=== PATIENT | female | born 1960 | race African-American/Black ===

== ENCOUNTER 2023-02-10 01:15 | Inpatient (IN) | payer MEDICARE, OTHER ==
[2023-02-10] MEDS ORDERED: SODIUM CHLORIDE 0.9% 1,000 ML IV STA (01:34)
[2023-02-10 02:19] LABS: Basophils % (A) 0 %; Eosinophils # (A) 0.2 k/uL (0-0.7); Eosinophils % (A) 3 %; HCT 43.7 % (34.0-46.0); HGB 14.6 gm/dL (11.4-16.0); Lymphocytes # (A) 0.2 k/uL (1.0-4.8); Lymphocytes % (A) 4 %; MCH 32.1 pg (25.0-35.0); MCHC 33.4 g/dL (31.0-37.0); MCV 96.1 fL (80.0-100.0); Mean Platelet Volume 7.7; Monocytes # (A) 0.2 k/uL (0-1.0); Monocytes % (A) 4 %; Neutrophils # (A) 5.9 k/uL (1.3-7.7); Neutrophils % (A) 89 %; Platelet Count 203 k/uL (150-450); RBC 4.55 m/uL (3.80-5.40); RDW 13.2 % (11.5-15.5); WBC 6.6 k/uL (3.8-10.6)
[2023-02-10] MEDS ORDERED: ONDANSETRON 4 MG/2 ML VIAL IVP STA (02:29)
[2023-02-10] MEDS: DICYCLOMINE 10 MG/ML 2 ML AMP IM STA ×2 (02:48→02:53)
[2023-02-10 03:01] LABS: Appearance,Urine Clear (Clear); Bilirubin,Urine Negative (Negative); Blood,Urine Negative (Negative); Color,Urine Yellow; Glucose,Urine (UA) Negative (Negative); Ketones,Urine Negative (Negative); Leukocyte Esterase,Urine Negative (Negative); Nitrite,Urine Negative (Negative); PH, Urine 7.5 (5.0-8.0); Protein,Urine Negative (Negative); Specific Gravity,Urine 1.012 (1.001-1.035); Urobilinogen,Urine <2.0 mg/dL (<2.0)
--- NOTE | 2023-02-10 03:12 | ED ---
Nausea/Vomiting/Diarrhea HPI - General Chief complaint: Nausea/Vomiting/Diarrhea Stated complaint: Vomiting Time Seen by Provider: 02/10/23 01:34 Source: patient, RN notes reviewed, old records reviewed Mode of arrival: ambulatory Limitations: no limitations - History of Present Illness Initial comments: This is a 62-year-old female to the ER for evaluation of possible food poisoning nausea abdominal pain weakness not feeling well. Patient presents to the emergency department for evaluation concern for food poisoning and nausea. Positive she may be having gas pain and abdominal pain. Patient does have history of hysterectomy no other abdominal surgeries. No travel history otherwise sick contacts. MD complaint: nausea, vomiting, diarrhea, abdominal pain -: hour(s) Description of Vomiting: food contents Associated Abdominal Pain: Yes Location: diffuse Radiation: none Severity: mild Severity scale (1-10): 2 Quality: sharp Consistency: intermittent Improves with: none Worsens with: none Context: possible food poisoning Associated Symptoms: loss of appetite, nausea/vomiting, weakness - Related Data Home Medications Medication Instructions Recorded Confirmed Levothyroxine Sodium [Synthroid] 75 mcg PO DAILY 02/10/23 02/10/23 Allergies Allergy/AdvReac Type Severity Reaction Status Date / Time tetracycline Allergy Rash/Hives Verified 02/10/23 08:56 codeine AdvReac Unknown Verified 02/10/23 22:57 Review of Systems ROS Statement: Those systems with pertinent positive or pertinent negative responses have been documented in the HPI. ROS Other: All systems not noted in ROS Statement are negative. Past Medical History Past Medical History: Atrial Fibrillation, Thyroid Disorder Past Surgical History: No Surgical Hx Reported Past Psychological History: No Psychological Hx Reported Smoking Status: Never smoker Past Alcohol Use History: None Reported Past Drug Use History: None Reported General Exam Limitations: no limitations General appearance: alert, in no apparent distress, lethargic, cachectic Head exam: Present: atraumatic, normocephalic, normal inspection Eye exam: Present: normal appearance, PERRL, EOMI. Absent: scleral icterus, conjunctival injection, periorbital swelling ENT exam: Present: normal exam, mucous membranes moist Neck exam: Present: normal inspection. Absent: tenderness, meningismus, lymphadenopathy Respiratory exam: Present: normal lung sounds bilaterally. Absent: respiratory distress, wheezes, rales, rhonchi, stridor Cardiovascular Exam: Present: regular rate, normal rhythm, normal heart sounds. Absent: systolic murmur, diastolic murmur, rubs, gallop, clicks GI/Abdominal exam: Present: soft, normal bowel sounds. Absent: distended, tenderness, guarding, rebound, rigid Extremities exam: Present: normal inspection, full ROM, normal capillary refill. Absent: tenderness, pedal edema, joint swelling, calf tenderness Back exam: Present: normal inspection Neurological exam: Present: alert, oriented X3, CN II-XII intact Psychiatric exam: Present: normal affect, normal mood Skin exam: Present: warm, dry, intact, normal color. Absent: rash Course Vital Signs 02/10/23 02/10/23 02/10/23 01:24 02:01 05:39 Temperature 100.3 F H 99.4 F 99.0 F Pulse Rate 102 H Respiratory 16 Rate Blood Pressure 122/76 Blood Pressure [Left Arm Sitting] O2 Sat by Pulse 98 Oximetry 02/10/23 02/10/23 02/10/23 11:00 11:21 15:48 Temperature 100.1 F H 100.1 F H 99.4 F Pulse Rate 72 Respiratory 18 18 Rate Blood Pressure 130/75 Blood Pressure 132/78 [Left Arm Sitting] O2 Sat by Pulse 100 99 Oximetry 02/10/23 20:24 Temperature 102 F H Pulse Rate 78 Respiratory 16 Rate Blood Pressure 109/66 Blood Pressure [Left Arm Sitting] O2 Sat by Pulse 98 Oximetry - Reevaluation(s) Reevaluation #1: 02/10/23 03:11 Medical record is reviewed Reevaluation #2: 02/10/23 03:11 Patient symptoms are improved Reevaluation #3: Patient informed of results and questions answered Reevaluation #4: 02/10/23 03:11 Was pt. sent in by a medical professional or institution? @ -no Did you speak to anyone other than the patient for history? @ -no Did you review nursing and triage notes? @ -agree Were old charts reviewed? @ -yes Differential Diagnosis? @ -prior EKG interpreted by me (3pts min.)? @ -yes X-rays interpreted by me (1pt min.)? @ -yes CT interpreted by me (1pt min.)? @ -yes U/S interpreted by me (1pt. min.)? @ -no What testing was considered but not performed? (CT, X-rays, U/S, labs)? Why? @ -no What meds were considered but not given? Why? @ -no Did you discuss the management of the patient with other professionals? @ -no Did you reconcile home meds? @ -no Was smoking cessation discussed for >3mins.? @ -no Was critical care preformed (if so, how long)? @ -no Were there social determinants of health that impacted care today? How? (Homelessness, low income, unemployed, alcoholism, drug addiction, transportation, low edu. Level, literacy, decrease access to med. care, snf, rehab)? @ -no Was there de-escalation of care discussed even if they declined? (Discuss DNR or withdrawal of care, Hospice)? @ -no What co-morbidities impacted this encounter? (DM, HTN, Smoking, COPD, CAD, Ca ncer, CVA, Hep., AIDS, mental health diagnosis, sleep apnea, morbid obesity)? @ -none Was patient admitted / discharged? @ -83 male to the emergency department for altered mental status likely fever with urinary tract infection, multifocal pneumonia, and subacute CVA. Patient will be admitted for breathing treatments supportive care and neurology evaluation Gastric outlet obstruction Undiagnosed new problem with uncertain prognosis? @ -no Drug Therapy requiring intensive monitoring for toxicity (Heparin, Nitro, Insulin, Cardizem)? @ -no Were any procedures done? @ -no Diagnosis/symptom? @ -Gastric outlet obstruction Acute, or Chronic, or Acute on Chronic? @ -acute Uncomplicated (without systemic symptoms) or Complicated (systemic symptoms)? @ -complicated Side effects of treatment? @ -no Exacerbation, Progression, or Severe Exacerbation] @ -no Poses a threat to life or bodily function? @ -yes2 Reevaluation #5: 02/10/23 03:11 Differential Abdominal Pain Women: Appendicitis, Cholecystitis, diverticulosis, ischemic bowel, pancreatitis, hepatitis, UTI, gastroenteritis, AAA, incarcerated hernia, bowel obstruction, constipation, inflammatory bowel, hepatitis, peptic ulcer disease, splenic infarction, perforated viscus, vulvitis, ovarian torsion, PID, kidney stone, placenta abruption, this is not meant to be an all-inclusive list Differential Fever: Pneumonia, viral URI, endocarditis, myocarditis, pericarditis, otitis, sinu sitis, peritonsillar Abscess, retropharyngeal Abscess, epiglottitis, peritonitis, appendicitis, Destiney cystitis, diverticulitis, hepatitis, colitis, UTI, PID, TOA, pyelonephritis, prostatitis, epididymitis, meningitis, encephalitis, pulmonary embolism, CVA, thyroid storm, pancreatitis, adrenal crisis, cavernous sinus thrombosis, this is not meant to be an all-inclusive list. - Consultations Consultation #1: spoke with admitting physicians who agree to admit this patient Medical Decision Making - Medical Decision Making 62 female to the emergency department for evaluation of fever nausea vomiting weakness. Patient feeling persistently sick here in the emergency department. Patient does have gastric outlet obstruction will admit for further evaluation by surgery - Lab Data Result diagrams: 02/12/23 06:08 02/12/23 06:08 Lab Results 02/10/23 02/10/23 02/10/23 Range/Units 01:44 01:44 01:44 WBC 6.6 (3.8-10.6) k/uL RBC 4.55 (3.80-5.40) m/uL Hgb 14.6 (11.4-16.0) gm/dL Hct 43.7 (34.0-46.0) % MCV 96.1 (80.0-100.0) fL MCH 32.1 (25.0-35.0) pg MCHC 33.4 (31.0-37.0) g/dL RDW 13.2 (11.5-15.5) % Plt Count 203 (150-450) k/uL MPV 7.7 Neutrophils % 89 % Lymphocytes % 4 % Monocytes % 4 % Eosinophils % 3 % Basophils % 0 % Neutrophils # 5.9 (1.3-7.7) k/uL Lymphocytes # 0.2 L (1.0-4.8) k/uL Monocytes # 0.2 (0-1.0) k/uL Eosinophils # 0.2 (0-0.7) k/uL Basophils # 0.0 (0-0.2) k/uL Sodium (137-145) mmol/L Potassium (3.5-5.1) mmol/L Chloride (98-107) mmol/L Carbon Dioxide (22-30) mmol/L Anion Gap mmol/L BUN (7-17) mg/dL Creatinine (0.52-1.04) mg/dL Est GFR (CKD-EPI)AfAm (>60 ml/min/1.73 sqM) Est GFR (CKD-EPI)NonAf (>60 ml/min/1.73 sqM) Glucose (74-99) mg/dL Plasma Lactic Acid Gustavo 1.1 (0.7-2.0) mmol/L Calcium (8.4-10.2) mg/dL Phosphorus (2.5-4.5) mg/dL Magnesium (1.6-2.3) mg/dL Total Bilirubin (0.2-1.3) mg/dL AST (14-36) U/L ALT (4-34) U/L Alkaline Phosphatase (38-126) U/L Total Protein (6.3-8.2) g/dL Albumin (3.5-5.0) g/dL Amylase (30-110) U/L Lipase (23-300) U/L Urine Color Yellow Urine Appearance Clear (Clear) Urine pH 7.5 (5.0-8.0) Ur Specific Fowler 1.012 (1.001-1.035) Urine Protein Negative (Negative) Urine Glucose (UA) Negative (Negative) Urine Ketones Negative (Negative) Urine Blood Negative (Negative) Urine Nitrite Negative (Negative) Urine Bilirubin Negative (Negative) Urine Urobilinogen <2.0 (<2.0) mg/dL Ur Leukocyte Esterase Negative (Negative) 02/10/23 Range/Units 03:10 WBC (3.8-10.6) k/uL RBC (3.80-5.40) m/uL Hgb (11.4-16.0) gm/dL Hct (34.0-46.0) % MCV (80.0-100.0) fL MCH (25.0-35.0) pg MCHC (31.0-37.0) g/dL RDW (11.5-15.5) % Plt Count (150-450) k/uL MPV Neutrophils % % Lymphocytes % % Monocytes % % Eosinophils % % Basophils % % Neutrophils # (1.3-7.7) k/uL Lymphocytes # (1.0-4.8) k/uL Monocytes # (0-1.0) k/uL Eosinophils # (0-0.7) k/uL Basophils # (0-0.2) k/uL Sodium 139 (137-145) mmol/L Potassium 3.6 (3.5-5.1) mmol/L Chloride 102 (98-107) mmol/L Carbon Dioxide 30 (22-30) mmol/L Anion Gap 7 mmol/L BUN 12 (7-17) mg/dL Creatinine 0.64 (0.52-1.04) mg/dL Est GFR (CKD-EPI)AfAm >90 (>60 ml/min/1.73 sqM) Est GFR (CKD-EPI)NonAf >90 (>60 ml/min/1.73 sqM) Glucose 137 H (74-99) mg/dL Plasma Lactic Acid Gustavo (0.7-2.0) mmol/L Calcium 9.0 (8.4-10.2) mg/dL Phosphorus 3.3 (2.5-4.5) mg/dL Magnesium 1.8 (1.6-2.3) mg/dL Total Bilirubin 0.8 (0.2-1.3) mg/dL AST 33 (14-36) U/L ALT 28 (4-34) U/L Alkaline Phosphatase 47 (38-126) U/L Total Protein 7.0 (6.3-8.2) g/dL Albumin 4.2 (3.5-5.0) g/dL Amylase 126 H (30-110) U/L Lipase 261 (23-300) U/L Urine Color Urine Appearance (Clear) Urine pH (5.0-8.0) Ur Specific Fowler (1.001-1.035) Urine Protein (Negative) Urine Glucose (UA) (Negative) Urine Ketones (Negative) Urine Blood (Negative) Urine Nitrite (Negative) Urine Bilirubin (Negative) Urine Urobilinogen (<2.0) mg/dL Ur Leukocyte Esterase (Negative) - Radiology Data Radiology results: report reviewed (Chest x-ray CT head and pelvis shows gastric outlet obstruction), image reviewed Disposition Clinical Impression: Dehydration, Gastric outlet obstruction, Fever, Weakness Disposition: ADMITTED IP TO THIS [facility] Condition: Stable Is patient prescribed a controlled substance at d/c from ED?: No Time of Disposition: 06:15
[2023-02-10 03:27] LABS: ALT 28 U/L (4-34); AST 33 U/L (14-36); African American GFR (CKD) >90 (>60 ml/min/1.73 sqM); Albumin 4.2 g/dL (3.5-5.0); Alkaline Phosphatase 47 U/L (38-126); Amylase 126 U/L (30-110); Anion Gap 7 mmol/L; Blood Urea Nitrogen 12 mg/dL (7-17); Carbon Dioxide 30 mmol/L (22-30); Chloride 102 mmol/L (98-107); Glucose 137 mg/dL (74-99); Lipase 261 U/L (23-300); Magnesium 1.8 mg/dL (1.6-2.3); Non-African American GFR(CKD) >90 (>60 ml/min/1.73 sqM); Phosphorus 3.3 mg/dL (2.5-4.5); Potassium 3.6 mmol/L (3.5-5.1); Sodium 139 mmol/L (137-145); Total Bilirubin 0.8 mg/dL (0.2-1.3)
[2023-02-10] MEDS ORDERED: ONDANSETRON 4 MG/2 ML VIAL IVP PRN (06:20)
[2023-02-10] MEDS ORDERED: MORPHINE SULFATE 4 MG/ML SYRINGE IV PRN (06:20)
[2023-02-10] MEDS ORDERED: NALOXONE 0.4 MG/ML 1 ML VIAL IV PRN (06:20)
[2023-02-10] MEDS ORDERED: AMPICILLIN-SULBACTAM 3 GM in SODIUM CHLORIDE 0.9% 100 ML IVPB STA (06:24)
[2023-02-10] MEDS: SODIUM CHLORIDE 0.9% 1,000 ML IV SCH ×2 (06:52→21:14)
--- NOTE | 2023-02-10 08:35 | CT ---
EXAMINATION TYPE: CT abdomen pelvis w con DATE OF EXAM: 02/10/2023 HISTORY: Nausea vomiting and abdominal pain after recent meal ingestion CT DLP: 503mGycm Automated Exposure Control for Dose Reduction was Utilized. CONTRAST: CT scan of the abdomen and pelvis is performed without oral but with IV Contrast, patient injected wi th 100 mL of Isovue 300. COMPARISON: None FINDINGS: LUNG BASES: No significant abnormality is appreciated. LIVER/GB: There are a few tiny subcentimeter hypodense lesions throughout the liver that are too smal l to definitively characterize but presumably benign. Contracted gallbladder noted coronal image 15. No biliary dilatation. PANCREAS: Focal 6 mm round low dense focus in the proximal pancreatic body axial image [address] cystic lesion or IPMN along the course of the pancreatic duct. Nonemergent follow-up advised. SPLEEN: Nonspecific 1.4 cm hypodense lesion anterior spleen axial image 18 is favored benign thin-wal led cyst. ADRENALS: No significant abnormality is seen. KIDNEYS: Symmetric cortical medullary uptake and excretion without hydronephrosis seen bilaterally. T here is 1.1 cm simple appearing thin-walled cyst in the right kidney delayed axial image 31. BOWEL: There is fluid filled moderate to severe distended stomach. There is no abnormal dilatation of the duodenal sweep. There is no dilated small and large bowel loops. Fluid-filled cecum is present. Mild/moderate wall thickening in the sigmoid rectal colon. Slightly suboptimal evaluation of bowel as patient has little intra-abdominal fat. UTERUS/ADNEXA: Uterus surgically absent or markedly atrophic. Multiple small scattered bilateral pelv ic phleboliths are seen.. LYMPH NODES: No greater than 1cm abdominal or pelvic lymph nodes are appreciated. OSSEOUS STRUCTURES: No significant abnormality is seen. OTHER: Focal swirling of vessels noted axial image 29 but the SMA/SMV relationship is preserved. IMPRESSION: 1. Moderate to severe fluid-filled dilated stomach without bowel dilatation consistent with gastric o utlet obstruction. Internal hernia is not entirely excluded. Consider nasogastric tube decompression. 2. Mild to moderate wall thickening of the sigmoid rectal colon without surrounding fat stranding. Ab normal fluid in the proximal colon. Findings could reflect product of uncomplicated colitis. 3. A 6 mm hypodense focus in the proximal pancreatic body could reflect pancreatic cystic lesion or I PMN and nonurgent follow-up including MRI/MRCP advised to further evaluate.
--- NOTE | 2023-02-10 12:16 | XR ---
EXAMINATION TYPE: XR chest 1V portable DATE OF EXAM: 02/10/2023 CLINICAL HISTORY: NG tube placement. TECHNIQUE: Single AP portable frontal upright view of the chest is obtained. COMPARISON: None FINDINGS: Nasogastric tube projecting below diaphragm is seen. There is no suspicious focal air space opacity, pleural effusion, or pneumothorax seen. The cardiac silhouette size is within normal limit s. The osseous structures are intact. IMPRESSION: As above.
[2023-02-10] MEDS: PANTOPRAZOLE 40 MG/10 ML VIAL IV SCH (12:35)
--- NOTE | 2023-02-10 13:45 | P.HPIM ---
History of Present Illness Patient is a 8-year-old female came in with complaints of nausea vomiting and some diarrhea patient had a normal bowel movement. Patient had a CT of the abdomen which showed bowel obstruction with some colitis. Patient also has fe mary grace earlier today. Patient has a fluid-filled distended stomach. REVIEW OF SYSTEMS: CONSTITUTIONAL: No fever, no malaise, no fatigue. HEENT: No recent visual problems or hearing problems. Denied any sore throat. CARDIOVASCULAR: No chest pain, orthopnea, PND, no palpitations, no syncope. PULMONARY: No shortness of breath, no cough, no hemoptysis. GASTROINTESTINAL: As mentioned in HPI NEUROLOGICAL: No headaches, no weakness, no numbness. HEMATOLOGICAL: Denies any bleeding or petechiae. GENITOURINARY: Denies any burning micturition, frequency, or urgency. MUSCULOSKELETAL/RHEUMATOLOGICAL: Denies any joint pain, swelling, or any muscle pain. ENDOCRINE: Denies any polyuria or polydipsia. The rest of the 14-point review of systems is negative. PHYSICAL EXAMINATION: GENERAL: The patient is alert and oriented x3, not in any acute distress. Well developed, well nourished. HEENT: Pupils are round and equally reacting to light. EOMI. No scleral icterus. No conjunctival pallor. Normocephalic, atraumatic. No pharyngeal erythema. No thyromegaly. CARDIOVASCULAR: S1 and S2 present. No murmurs, rubs, or gallops. PULMONARY: Chest is clear to auscultation, no wheezing or crackles. ABDOMEN: Soft, nontender, nondistended, normoactive bowel sounds. No palpable organomegaly. MUSCULOSKELETAL: No joint swelling or deformity. EXTREMITIES: No cyanosis, clubbing, or pedal edema. NEUROLOGICAL: Gross neurological examination did not reveal any focal deficits. SKIN: No rashes. Assessment and plan I for nausea vomiting abdominal pain: Possible gastric outlet and small bowel obstruction patient may have viral gastroenteritis although I cannot completely rule out bacterial sigmoid colitis because of which I'll start patient on antibiotics, patient will be continued on IV fluids patient is presently on Unasyn. -Fever due to possible colitis or viral gastroenteritis -Hypothyroidism patient can be resumed on levothyroxine whenever she can tolerate by mouth diet, patient is presently nothing by mouth DVT prophylaxis: Lovenox subcutaneous Past Medical History Past Medical History: Atrial Fibrillation, Thyroid Disorder Past Surgical History: No Surgical Hx Reported Past Psychological History: No Psychological Hx Reported Smoking Status: Never smoker Past Alcohol Use History: None Reported Past Drug Use History: None Reported Medications and Allergies Home Medications Medication Instructions Recorded Confirmed Type Levothyroxine Sodium [Synthroid] 75 mcg PO DAILY 02/10/23 02/10/23 History Allergies Allergy/AdvReac Type Severity Reaction Status Date / Time tetracycline Allergy Rash/Hives Verified 02/10/23 08:56 Physical Exam Vitals: Vital Signs Temp Pulse Resp BP BP Pulse Ox 02/10/23 11:21 100.1 F H 18 132/78 100 02/10/23 11:00 100.1 F H 02/10/23 05:39 99.0 F 02/10/23 02:01 99.4 F 02/10/23 01:24 100.3 F H 102 H 16 122/76 98 Intake and Output 02/09/23 02/10/23 02/10/23 22:59 06:59 14:59 Other: Weight 50.439 kg Results CBC & Chem 7: 02/10/23 01:44 02/10/23 03:10 Labs: Abnormal Lab Results - Last 24 Hours (Table) 02/10/23 02/10/23 Range/Units 01:44 03:10 Lymphocytes # 0.2 L (1.0-4.8) k/uL Glucose 137 H (74-99) mg/dL Amylase 126 H (30-110) U/L
--- NOTE | 2023-02-10 15:20 | P.GSCN ---
History of Present Illness Consult date: 02/10/23 History of present illness: CHIEF COMPLAINT: Abdominal pain with nausea and vomiting HISTORY OF PRESENT ILLNESS: This is a 62-year-old female who initially presented to the hospital with complaints of abdominal pain and nausea and vomiting. She ate [employer] yesterday morning for breakfast and then had some bananas later in the day. She reports that her abdomen became very bloated and she vomited once. However, she remained distended. She presented to the ER for further evaluation. Initially she said that she had food poisoning from the [employer]. She did have 4 normal bowel movements yesterday. Since then she has had no bowel movements or flatus. She's never had EGD or colonoscopy. Past surgical history does include a hysterectomy. She does have a known history of atrial fib relation not on any blood thinners. She had mild temps of 100.3 and his been mildly tachycardic. Computed tomography scan of the abdomen and pelvis completed showing concerns for a gastric outlet obstruction. There was moderate to severe fluid-filled dilated stomach noted. NG tube placed in ER. Patient is from [place] and is here visiting family. PAST MEDICAL HISTORY: See below PAST SURGICAL HISTORY: See below MEDICATIONS: See below ALLERGIES: See below SOCIAL HISTORY: No illicit drug use. REVIEW OF SYSTEMS: CONSTITUTIONAL: Denies fever or chills. HEENT: Denies blurred vision, vision changes, or eye pain. Denies hemoptysis CARDIOVASCULAR: Denies chest pain or pressure. RESPIRATORY: No shortness of breath. GASTROINTESTINAL: See HPI for pertinent findings HEMATOLOGIC: Denies bleeding disorders. GENITOURINARY: Denies any blood in urine or increased urinary frequency. SKIN: Denies pruitis. Denies rash. PHYSICAL EXAM: VITAL SIGNS: Reviewed GENERAL: Well-developed in no acute distress. HEENT: No sclera icterus. Extraocular movements grossly intact. Moist buccal mucosa. Head is atraumatic, normocephalic. No nasal drainage. ABDOMEN: Soft. Mildly distended Nontender NEUROLOGIC: Alert and oriented. Cranial nerves II through XII grossly intact. LABORATORY DATA: WBC 6.6 Hgb 14.6 platelets 203 Sodium is 139 potassium 3.6 creatinine 0.64 Lactic acid 1.1 LFTs normal lipase normal Urinalysis negative IMAGING: Computed tomography scan abdomen and pelvis moderate to severe fluid-filled dilated stomach without bowel dilatation consistent with gastric outlet obstruction. Internal hernia is not entirely excluded. Consider NG tube decompression. Mild to moderate wall thickening of the sigmoid rectal: Without surrounding fat stranding. Abnormal fluid in the proximal colon. Findings could reflect product of uncomplicated colitis. 6 mm hypodense focus in the proximal pancreatic body could reflect pancreatic cystic lesion. ASSESSMENT: 1. Abdominal pain with nausea and vomiting 2. Moderate severe fluid-filled dilated stomach without bowel dilatation consistent with gastric outlet obstruction noted on computed tomography scan 3. Mild to moderate wall thickening of the sigmoid rectal colon With abnormal fluid in the proximal colon. Possible uncomplicated colitis. 4. 6 mm hypodense focus in the proximal pancreatic body that could reflect pancreatic cystic lesion PLAN: -NG tube placed for decompression -Keep patient nothing by mouth -Upper GI has been ordered -Further recommendations forthcoming per surgeon regarding EGD -Continue IV fluids -Continue antibiotics for possible colitis Thank you for this consultation Physician Swage Toolsetter note has been reviewed by physician. Signing provider agrees with the documented findings, assessment, and plan of care. I have personally seen and examined the patient, reviewed the [facility]IL[facility] /PAs history, exam and MDM and agree with the assessment and plan as written. Based on total visit time, I have performed more than 50% of the visit. As above: Patient presents with distended stomach. Had a nasogastric tube placed with some improvement. Apparently this fell out and she does not want to go back in. Upper GI ordered for tomorrow morning. Await those findings. Keep nothing by mouth. Continue antiacid therapy. Past Medical History Past Medical History: Atrial Fibrillation, Thyroid Disorder Past Surgical History: No Surgical Hx Reported Past Psychological History: No Psychological Hx Reported Smoking Status: Never smoker Past Alcohol Use History: None Reported Past Drug Use History: None Reported Medications and Allergies Home Medications Medication Instructions Recorded Confirmed Type Levothyroxine Sodium [Synthroid] 75 mcg PO DAILY 02/10/23 02/10/23 History Allergies Allergy/AdvReac Type Severity Reaction Status Date / Time tetracycline Allergy Rash/Hives Verified 02/10/23 08:56 Surgical - Exam Vital Signs Temp Pulse Resp BP Pulse Ox 100.3 F H 102 H 16 122/76 98 02/10/23 01:24 02/10/23 01:24 02/10/23 01:24 02/10/23 01:24 02/10/23 01:24 Results - Labs 02/10/23 01:44 02/10/23 03:10 Abnormal Lab Results - Last 24 Hours (Table) 02/10/23 02/10/23 Range/Units 01:44 03:10 Lymphocytes # 0.2 L (1.0-4.8) k/uL Glucose 137 H (74-99) mg/dL Amylase 126 H (30-110) U/L Diabetes panel 02/10/23 Range/Units 03:10 Sodium 139 (137-145) mmol/L Potassium 3.6 (3.5-5.1) mmol/L Chloride 102 (98-107) mmol/L Carbon Dioxide 30 (22-30) mmol/L BUN 12 (7-17) mg/dL Creatinine 0.64 (0.52-1.04) mg/dL Glucose 137 H (74-99) mg/dL Calcium 9.0 (8.4-10.2) mg/dL AST 33 (14-36) U/L ALT 28 (4-34) U/L Alkaline Phosphatase 47 (38-126) U/L Total Protein 7.0 (6.3-8.2) g/dL Albumin 4.2 (3.5-5.0) g/dL Calcium panel 02/10/23 Range/Units 03:10 Calcium 9.0 (8.4-10.2) mg/dL Phosphorus 3.3 (2.5-4.5) mg/dL Albumin 4.2 (3.5-5.0) g/dL Pituitary panel 02/10/23 Range/Units 03:10 Sodium 139 (137-145) mmol/L Potassium 3.6 (3.5-5.1) mmol/L Chloride 102 (98-107) mmol/L Carbon Dioxide 30 (22-30) mmol/L BUN 12 (7-17) mg/dL Creatinine 0.64 (0.52-1.04) mg/dL Glucose 137 H (74-99) mg/dL Calcium 9.0 (8.4-10.2) mg/dL Adrenal panel 02/10/23 Range/Units 03:10 Sodium 139 (137-145) mmol/L Potassium 3.6 (3.5-5.1) mmol/L Chloride 102 (98-107) mmol/L Carbon Dioxide 30 (22-30) mmol/L BUN 12 (7-17) mg/dL Creatinine 0.64 (0.52-1.04) mg/dL Glucose 137 H (74-99) mg/dL Calcium 9.0 (8.4-10.2) mg/dL Total Bilirubin 0.8 (0.2-1.3) mg/dL AST 33 (14-36) U/L ALT 28 (4-34) U/L Alkaline Phosphatase 47 (38-126) U/L Total Protein 7.0 (6.3-8.2) g/dL Albumin 4.2 (3.5-5.0) g/dL
[2023-02-10] MEDS: AMPICILLIN-SULBACTAM 3 GM in SODIUM CHLORIDE 0.9% 100 ML IVPB SCH ×2 (16:41→23:44)
[2023-02-10] MEDS: ACETAMINOPHEN SUPPOSITORY 650 MG SUPP RECTAL PRN (20:41)
[2023-02-11] MEDS: ACETAMINOPHEN SUPPOSITORY 650 MG SUPP RECTAL PRN (05:26)
[2023-02-11] MEDS: ENOXAPARIN 40 MG/0.4 ML SYRINGE SQ SCH (07:32)
[2023-02-11] MEDS: AMPICILLIN-SULBACTAM 3 GM in SODIUM CHLORIDE 0.9% 100 ML IVPB SCH ×3 (07:33→23:28)
[2023-02-11] MEDS: SODIUM CHLORIDE 0.9% 1,000 ML IV SCH ×2 (07:39→22:13)
--- NOTE | 2023-02-11 07:44 | FL ---
EXAMINATION TYPE: FL UGI DATE OF EXAM: 02/11/2023 COMPARISON: None HISTORY: Gastric outlet obstruction distended stomach TECHNIQUE: Single contrast technique with Isovue-370. 100 mL was placed through the NG tube with a 50 mL flushed with water. FINDINGS: Fluoroscopy time 2 minutes 16 seconds Images: 20 The stomach was nondistended at the time of beginning the exam. Contrast fills the stomach. No intral uminal or extramural defects are evident. Contrast passes through the stomach and easily into the duo denum. Proximal small bowel loops appear unremarkable. IMPRESSION: 1. No outlet obstruction identified.
[2023-02-11] MEDS: PANTOPRAZOLE 40 MG/10 ML VIAL IV SCH (08:24)
[2023-02-11] MEDS: LEVOTHYROXINE 75 MCG TAB PO SCH (10:24)
--- NOTE | 2023-02-11 10:53 | P.PN ---
Subjective Progress Note Date: 02/11/23 Principal diagnosis: Abdominal pain Patient is doing better today. Nasogastric tube was replaced yesterday afternoon with decent output. Today's upper GI shows no evidence of obstruction or mass. Patient is anxious to have the tube removed. She is passing flatus and bowel movements. Denies abdominal pain has no pain elsewhere. Unfortunately is having intermittent fevers as high as 102. Objective - Vital Signs Vital signs: Vital Signs Temp 99.0 F 02/11/23 10:36 Pulse 84 02/11/23 07:40 Resp 16 02/11/23 07:40 BP 118/71 02/11/23 07:40 Pulse Ox 99 02/11/23 07:40 FiO2 Intake & Output 02/10/23 02/11/23 02/11/23 18:59 06:59 18:59 Intake Total 900 Balance 900 Weight 50.439 kg Intake: Intake, IV Titration 900 Amount Ampicillin-Sulbactam 3 gm 100 In Sodium Chloride 0.9% 100 ml @ 200 mls/hr IVPB Q8HR [facility] Rx#:[id number] Sodium Chloride 0.9% 1, 800 000 ml @ 75 mls/hr IV . [id number] [facility] Rx#:[id number] Other: Voiding Method Toilet Toilet Bedside Commode Bedside Commode # Voids 2 - Exam Abdomen: Soft, nontender, nondistended - Labs CBC & Chem 7: 02/10/23 01:44 02/10/23 03:10 Assessment and Plan (1) Gastric outlet obstruction Narrative/Plan: Today's upper GI negative for outlet obstruction. Suspect gastroparesis likely on the basis of ileus/possible viral illness. Continue fever workup. Begin clear liquids. Advance as tolerated. Applications should still have an upper endoscopy but she would like to do this after she gets back home to [place]. She has a flight on Monday. Current Visit: Yes Status: Acute Code(s): K31.1 - ADULT HYPERTROPHIC PYLORIC STENOSIS SNOMED Code(s): 272761568
--- NOTE | 2023-02-11 13:27 | P.PN ---
Subjective Patient is a 8-year-old female came in with complaints of nausea vomiting and some diarrhea patient had a normal bowel movement. Patient had a CT of the abdomen which showed bowel obstruction with some colitis. Patient also has fever earlier today. Patient has a fluid-filled distended stomach. 02/11/2023 Patient still had fevers last night although her gastroenteritis improved. Patient remains on antibiotics for mild colitis although her previous probably secondary to viral gastroenteritis. Patient's NG tube was removed and patient was started on clear liquid diet which will be advanced as tolerated. If patient doesn't have any fevers tomorrow will be discharged on 5 more days of antibiotic.. Constitutional: Denied any fatigue denied any fever. Cardio vascular: denied any chest pain, palpitations Gastrointestinal denied any nausea vomiting Pulmonary: Denied any shortness of breath cough Neurologic denied any new focal deficits All inpatient medications were reviewed and appropriate changes in these medications as dictated in the interval history and assessment and plan.: PHYSICAL EXAMINATION: GENERAL: The patient is alert and oriented x3, not in any acute distress. Well developed, well nourished. HEENT: Pupils are round and equally reacting to light. EOMI. No scleral icterus. No conjunctival pallor. Normocephalic, atraumatic. No pharyngeal erythema. No thyromegaly. CARDIOVASCULAR: S1 and S2 present. No murmurs, rubs, or gallops. PULMONARY: Chest is clear to auscultation, no wheezing or crackles. ABDOMEN: Soft, nontender, nondistended, normoactive bowel sounds. No palpable organomegaly. MUSCULOSKELETAL: No joint swelling or deformity. EXTREMITIES: No cyanosis, clubbing, or pedal edema. NEUROLOGICAL: Gross neurological examination did not reveal any focal deficits. SKIN: No rashes. Assessment and plan - nausea vomiting abdominal pain: Possible gastric outlet and small bowel obstruction, patient may have viral gastroenteritis although I cannot completely rule out bacterial sigmoid colitis because of which I'll start patient on antibiotics, patient will be continued on IV fluids patient is presently on Unasyn. -Fever due to possible colitis or viral gastroenteritis -Hypothyroidism patient can be resumed on levothyroxine whenever she can tolerate by mouth diet, patient is presently nothing by mouth DVT prophylaxis: Lovenox subcutaneous Objective - Vital Signs Vital signs: Vital Signs Temp 97.9 F 02/11/23 11:39 Pulse 84 02/11/23 07:40 Resp 16 02/11/23 07:40 BP 118/71 02/11/23 07:40 Pulse Ox 99 02/11/23 07:40 FiO2 Intake & Output 02/10/23 02/11/23 02/11/23 18:59 06:59 18:59 Intake Total 900 Balance 900 Weight 50.439 kg Intake: Intake, IV Titration 900 Amount Ampicillin-Sulbactam 3 gm 100 In Sodium Chloride 0.9% 100 ml @ 200 mls/hr IVPB Q8HR [facility] Rx#:[id number] Sodium Chloride 0.9% 1, 800 000 ml @ 75 mls/hr IV . [id number] [facility] Rx#:[id number] Other: Voiding Method Toilet Toilet Bedside Commode Bedside Commode # Voids 2 1 - Labs CBC & Chem 7: 02/10/23 01:44 02/10/23 03:10
[2023-02-11] MEDS ORDERED: METOPROLOL TARTRATE 12.5 MG TAB PO STA (23:50)
[2023-02-12] MEDS: LEVOTHYROXINE 75 MCG TAB PO SCH (06:17)
[2023-02-12] MEDS: ENOXAPARIN 40 MG/0.4 ML SYRINGE SQ SCH (08:13)
[2023-02-12] MEDS: PANTOPRAZOLE 40 MG/10 ML VIAL IV SCH (08:16)
[2023-02-12] MEDS: AMPICILLIN-SULBACTAM 3 GM in SODIUM CHLORIDE 0.9% 100 ML IVPB SCH (08:16)
[2023-02-12 09:29] LABS: HCT 38.9 % (37.2-46.3); HGB 12.7 d/dL (12.0-15.0); MCHC 32.6 d/dL (32.0-37.0); Mean Platelet Volume 10.8 FL (9.5-12.2); NRBC Per 100 WBC 0 X 10*3/uL (0.00-0.01); Platelet Count 191 X 10*3/uL (140-440); RBC 3.97 X 10*6/uL (4.10-5.20); RDW 13.8 % (11.5-14.5); WBC 5.32 X 10*3/uL (4.50-10.00)
[2023-02-12 10:16] LABS: Blood Urea Nitrogen 7.5 mg/dL (9.0-27.0); Calcium 8.6 mg/dL (8.7-10.3); Carbon Dioxide 25.3 mmol/L (21.6-31.8); Chloride 109 mmol/L (96-109); Glucose 90 mg/dL (70-110); Sodium 144 mmol/L (135-145)
--- NOTE | 2023-02-12 11:25 | P.PN ---
Subjective Progress Note Date: 02/12/23 Principal diagnosis: Abdominal pain Patient doing well today. No pain. She is having loose stools. Tolerating liquid diet. She is asking for more to eat. White blood cell count is normal. No further fevers. She had some tachycardia last night. She would like to go home. Objective - Vital Signs Vital signs: Vital Signs Temp 98.2 F 02/12/23 08:00 Pulse 66 02/12/23 08:00 Resp 16 02/12/23 08:00 BP 95/61 02/12/23 08:00 Pulse Ox 99 02/12/23 08:00 FiO2 Intake & Output 02/11/23 02/12/23 02/12/23 18:59 06:59 18:59 Intake Total 1500 480 Balance 1500 480 Intake: Intake, IV Titration 1000 Amount Ampicillin-Sulbactam 3 gm 100 In Sodium Chloride 0.9% 100 ml @ 200 mls/hr IVPB Q8HR [facility] Rx#:[id number] Sodium Chloride 0.9% 1, 900 000 ml @ 75 mls/hr IV . [id number] [facility] Rx#:[id number] Oral 500 480 Other: Voiding Method Toilet Toilet Bedside Commode Bedside Commode # Voids 1 5 # Bowel Movements 1 4 - Exam Abdomen: Soft, nontender, nondistended - Labs CBC & Chem 7: 02/12/23 06:08 02/12/23 06:08 Labs: Abnormal Lab Results - Last 24 Hours (Table) 02/12/23 02/12/23 Range/Units 06:08 06:08 RBC 3.97 L (4.10-5.20) X 10*6/uL MCV 98.0 H (80.0-97.0) FL BUN 7.5 L (9.0-27.0) mg/dL Calcium 8.6 L (8.7-10.3) mg/dL Assessment and Plan (1) Gastric outlet obstruction Narrative/Plan: Patient doing better today. Continue advancing diet as tolerated. May discharge from a surgical point of view. Recommend outpatient EGD. Follow-up with her primary care postdischarge. Current Visit: Yes Status: Acute Code(s): K31.1 - ADULT HYPERTROPHIC PYLORIC STENOSIS SNOMED Code(s): 998188251
[2023-02-12 13:54] VITALS: BP 121/66; PULSE 80; RESP 17; TEMP 98.8
--- NOTE | 2023-02-13 01:42 | P.DS ---
Providers Date of admission: 02/10/23 06:22 Attending physician: Swathi Evangelista Consults: 02/10/23 06:20 Consult Physician Routine Consulting Provider: Karel Cuello Consult Reason/Comments: ugi Do you want consulting provider notified?: Yes Primary care physician: Physician Nonstaff Hospital Course: Final Diagnosis Nausea vomiting abdominal pain: Possible gastric outlet and small bowel obstruction patient may have viral gastroenteritis, cannot completely rule out sigmoid colitis - symptoms have resolved. Fever due to to possible colitis or viral gastroenteritis, resolved Hx of paroxysmal atrial fibrillation currently in sinus mechanism Hx of hyponatremia of unknown etiology maintained on oral potassium daily outpatient Hypothyroidism 6 mm hypodense focus proximal pancreatic body reflecting pancreatic cystic lesion or IPMN -nonurgent f/u with MRI/MRCP for for further further evaluation Full Code Discharge Disposition Patient is stable for discharge home. General surgery has evaluate the patient and recommending upper endoscopy which patient does not want at this time will discuss with her PCP on return to [facility]. Patient fever has resolved, currently no further reports of nausea and diarrhea is improving. and tolerating diet has been advanced to low fiber and recommending to continue discharge. Patient to resume same home medications. Declined bulking agents such as questran or metamucil. Recommending no further antibiotics on discharge. Fever has resolved and patient has no white count clinically not behaving as infection and diarhea likely exacerbated by antibiotic use. Hospital Course Patient is a 62-year-old female came in with complaints of nausea vomiting and some diarrhea ongoing for 2 days. Patient has history of hypothyroidism, hypokalemia, and paroxysmal atrial fibrillation. Here visiting her daughter, patient lives in [facility]. Reports eating [employer] 2 days in a row and feels this may have contributed to her stomach issues. Admitted for further evaluation and general surgery was consulted. Patient has no white count on admission, LFTs normal, amylase and lipase normal, urinalysis negative, kidney function normal limits. Patient did have fever on admission. Patient had a CT of the abdomen which showed moderate to severe fluid filled dilated stomach without bowel dilation consistent with gastric outlet obstruction. Internal hernia not entirely excluded. Mild t to moderate wall thickening of the sigmoid rectal colon without surrounding f fat stranding. Abnormal fluid in the proximal colon. Could reflect uncomplicated diverticulitis. pancreatic cystic lesion as above. Patient underwent upper GI series revealing no outlet obstruction identified and stomach was nondistended on exam. Patient was treated with fluids and bowel rest. Received IV unasyn while inpatient and had NG tube placed overnight. Patient having loose stools however fever has improved. Patient states the stools seem to be less liquid. NG tube was removed. Tolerating diet, no fever. Abdomen is soft and nontender. Normoactive bowel sounds. No shortness of breath and no chest pain. Patient did have an episode of tachycardia while up using the bathroom overnight. EKG obtained revealing sinus tachycardia this improving with a small one time dose of metropolol 12.5 mg. Patient remains now in sinus mechanism with heart rate of 66. Blood pressure 122/84, on room air. white count remains normal at 5.32. Patient can discharge home with recommendations to undergo upper endoscopy on discharge. No further antibiotic therapy recommending. Continue low fiber diet. Please see medication reconciliation for a list of current medication. Thank you for allowing us to participate in the care of this patient. The impression and plan of care has been dictated by Guillermina Hawkins, Nurse Practitioner as directed. Dr. Niesha MD I have performed a history and physical examination and medical decision making of this patient, discussed the same with the dictator, and agree with the dictators assessment and plan as written, documented as a scribe. Based on total visit time, I have performed more than 50% of this visit. Patient Condition at Discharge: Stable Plan - Discharge Summary Discharge Rx Participant: No New Discharge Prescriptions: Continue Levothyroxine Sodium [Synthroid] 75 mcg PO DAILY Discharge Medication List Levothyroxine Sodium [Synthroid] 75 mcg PO DAILY 02/10/23 [History] Follow up Appointment(s)/Referral(s): Nonstaff,Physician [Primary Care Provider] - 1-2 days Patient Instructions/Handouts: Dehydration (DC) Activity/Diet/Wound Care/Special Instructions: Follow up with your PCP Dr. Abi Otto out of [place], [place] upon returning Continue diet as tolerated and ok to resume home potassium supplementation Follow up with a GI specialist on discharge, recommending patient to undergo upper endoscopy. Discharge Disposition: HOME SELF-CARE
== END 2023-02-12 14:17 | disposition home or self-care (01) | DRG 381 ==
LOC: EC 01:15 → 4SSUR 06:22 → 5NMEDONC 19:52
PROVIDERS: ADMIT Hospitalist; ATTEND Hospitalist
PROC: 0D9670Z Drainage of Stomach with Drainage Device, Via Natural or Artificial Opening (ICD-10-PCS; principal; 2023-02-10)
DX: K31.1 Adult hypertrophic pyloric stenosis (principal); K56.609 Unspecified intestinal obstruction, unspecified as to partial versus complete obstruction; K86.2 Cyst of pancreas; A08.4 Viral intestinal infection, unspecified; K52.9 Noninfective gastroenteritis and colitis, unspecified; I48.0 Paroxysmal atrial fibrillation; E03.9 Hypothyroidism, unspecified; E86.0 Dehydration; Z28.310 Unvaccinated for COVID-19; Z79.890 Hormone replacement therapy; Z88.1 Allergy status to other antibiotic agents
CPT/HCPCS: 36415; 71045; 74177; 74240; 80048; 80053; 81003; 82150; 83605; 83690; 83735; 84100; 85025; 85027; 93005; 96361; 96365; 96375; 99285